=== PATIENT | male | born 1975 | race Two or more races ===

== ENCOUNTER 2016-09-25 16:35 | Emergency (ER) | payer MEDICAID ==
[~2016-09-25] VITALS: Ht 154.9 cm; Wt 59.0 kg
[~2016-09-25 16:35] MED LIST: NKM
[2016-09-25 17:13] VITALS: BP 134/90
[2016-09-25] MEDS ORDERED: IBUPROFEN600 MG ORAL (17:52)
[2016-09-25 17:56] VITALS: BP 134/90
--- NOTE | 2016-09-25 21:19 | Emergency Room Report ---
History of Present Illness General Chief Complaint: Upper Extremity Injury Source: Patient (RODOLFO LUGO) Present Illness HPI The patient is a 41-year-old male presenting for left hand pain. He denies any known injury. He admits to drinking half a bottle of vodka before arriving. Pain described as a 10 out of 10 dull ache it is worse with touch and movement. He denies radiating pain. He denies numbness/tingling, N, V, F, chills (RODOLFO LUGO) Allergies: Coded Allergies: No Known Allergies (Unverified , 02/05/14) Patient History Past Medical History: see triage record Pertinent Family History: none Reviewed Nursing Documentation: PMH: Agreed, PSxH: Agreed (RODOLFO LUGO) Nursing Documentation-PMH Hx Hypertension: Yes Hx Cancer: No Hx Neurological Problems: Yes Hx Head Trauma: Yes - childhood: surgery, patient fell from tree (RODOLFO LUGO) Review of Systems All Other Systems: negative except mentioned in HPI (RODOLFO LUGO P.AAlie) Physical Exam Vital Signs Date Time Temp Pulse Resp B/P Pulse Ox O2 Delivery O2 Flow Rate FiO2 09/25/16 16:47 105 20 134/90 95 Room Air Sp02 EP Interpretation: reviewed, normal General Appearance: no apparent distress, alert, GCS 15, non-toxic Head: normocephalic, atraumatic Eyes: bilateral eye PERRL, bilateral eye normal inspection ENT: hearing grossly normal, normal pharynx, no angioedema, normal voice Respiratory: chest non-tender, lungs clear, normal breath sounds, speaking full sentences Musculoskeletal: back normal, gait/station normal, normal range of motion, tender - TTP over the L dorsal wrist and MCs diffusely Neurologic: alert, oriented x3, responsive, motor strength/tone normal, sensory intact, speech normal Psychiatric: judgement/insight normal, memory normal, mood/affect normal, no suicidal/homicidal ideation Skin: normal color, no rash, warm/dry, well hydrated (RODOLFO LUGO) Medical Decision Making PA Attestation Dr. Thomas is my supervising physician. Patient management was discussed with my supervising physician (RODOLFO LUGO) Diagnostic Impression: Primary Impression: Hand contusion Qualified Codes: S60.222A - Contusion of left hand, initial encounter Additional Impression: Alcohol abuse ER Course The patient is a 41-year-old male presenting for left hand pain Ddx considered include but not limited to sprain/strain, fracture, contusion, gout PE:NAD TTP over the L dorsal wrist and MCs diffusely. No edema. No deformity. Full active range of motion X-rays unremarkable The patient will be discharged home with a prescription for Motrin. He is advised to stop drinking alcohol excessively and seek help. ER precautions given (RODOLFO LUGO) ER Course Scribe documentation reviewed by me and is accurate. (Bj Thomas M.D.) Other X-Ray Diagnostic Results Other X-Ray Diagnostic Results : X-Ray Ordered: L hand Date: Sep 25, 2016 EP Interpretation: Yes Findings: no fractures, no dislocation, no soft tissue swelling Number of Views: 3 PA Scribe Text I am acting as scribe for my supervising physician. My supervising physician's interpretation of the L hand xrays are there are no fractures, dislocations or soft tissue swelling. (RODOLFO LUGO) Last Vital Signs Date Time Temp Pulse Resp B/P Pulse Ox O2 Delivery O2 Flow Rate FiO2 09/25/16 17:56 20 134/90 95 Room Air 09/25/16 16:47 105 Status: improved (RODOLFO LUGO P.A.) Disposition: HOME, SELF-CARE Condition: Improved Scripts Ibuprofen* (MOTRIN*) 600 Mg Tablet 600 MG ORAL Q8H Y for For Pain, #30 TAB 0 Refills Prov: RODOLFO LUGO 09/25/16 Patient Instructions: Alcohol Intoxication, Contusion Additional Instructions: I discussed my findings with the patient. All questions and concerns have been answered. Treatment and medication compliance have been addressed. I advised the patient that they need to follow up with PMD in 3-5 days. Return to ED if pain remains or worsens, numbness or tingling occurs, new rash is noticed, fever is noticed, or if needed for any reason. Patient verbalized understanding of discharge instructions. RODOLFO LUGO Sep 25, 2016 21:19 Bj Thomas M.D. Sep 26, 2016 02:31
--- NOTE | 2016-09-26 10:47 | Diagnostic Imaging Report ---
Indication: PAIN Technique: 3 views left hand Comparison: none Findings: Exam is limited, as fingers are flexed. This may obscure pathology. Per technologist, patient was unable to extend the fingers. No definite acute fractures. No dislocations. Joint spaces are preserved. Impression: Limited exam. No definite acute process
== END 2016-09-25 17:56 | disposition home or self-care (01) ==
LOC: EMR 17:08
DX: M79.642 Pain in left hand (principal); S60.222A Contusion of left hand, initial encounter; X58.XXXA Exposure to other specified factors, initial encounter; Y92.89 Other specified places as the place of occurrence of the external cause; F10.10 Alcohol abuse, uncomplicated; I10 Essential (primary) hypertension
CPT/HCPCS: 99283

== ENCOUNTER 2017-03-22 16:20 | Emergency (ER) | payer MEDICAID ==
[~2017-03-22] VITALS: Ht 175.3 cm; Wt 74.8 kg
[~2017-03-22 16:20] MED LIST changes: +IBUPROFEN600 MG ORAL
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
[2017-03-22 19:50] VITALS: BP 133/79
== END 2017-03-22 19:50 | disposition home or self-care (01) ==
LOC: EDBD 16:20 → EMR 16:50
DX: F10.129 Alcohol abuse with intoxication, unspecified (principal); I10 Essential (primary) hypertension
CPT/HCPCS: 99284

== ENCOUNTER 2017-11-15 00:12 | Emergency (ER) | payer MEDICAID ==
[~2017-11-15] VITALS: Ht 157.5 cm; Wt 61.2 kg
[2017-11-15] MEDS ORDERED: Pantoprazole Inj IV ONE (00:30)
[2017-11-15 01:15] LABS: APPEARANCE,URINE CLEAR; BILIRUBIN, URINE NEGATIVE (NEGATIVE); COLOR,URINE PALE YELLOW; GLUCOSE, URINE (UA) NEGATIVE (NEGATIVE); KETONES,URINE NEGATIVE (NEGATIVE); LEUKOCYTE ESTERASE ,URINE NEGATIVE (NEGATIVE); NITRITE,URINE NEGATIVE (NEGATIVE); PH,URINE 7 (4.5-8.0); PROTEIN,URINE NEGATIVE (NEGATIVE); UROBILINOGEN,URINE NORMAL MG/DL (0.0-1.0)
[2017-11-15 01:38] LABS: BASOPHILS % (AUTO) 1.2 % (0.0-2.0); EOSINOPHILS % (AUTO) 1.8 % (0.0-3.0); HEMATOCRIT 34.1 % (42.0-52.0); HEMOGLOBIN 11.3 G/DL (14.2-18.0); LYMPHOCYTES % (AUTO) 47.2 % (20.0-45.0); MEAN CORPUSCULAR VOLUME 79 FL (80-99); MONOCYTES % (AUTO) 12.6 % (1.0-10.0); NEUTROPHILS % (AUTO) 37.3 % (45.0-75.0); PLATELET COUNT 231 K/UL (150-450); RED CELL DISTRIBUTION WIDTH 18.4 % (11.6-14.8)
[2017-11-15 01:46] LABS: INR 0.9 (0.9-1.1)
[2017-11-15 01:51] LABS: ANION GAP 14 mmol/L (5-15); BLOOD UREA NITROGEN 6 mg/dL (7-18); CALCIUM 8.7 MG/DL (8.5-10.1); CARBON DIOXIDE 23 MMOL/L (21-32); CHLORIDE 105 MMOL/L (98-107); CREATININE 0.6 MG/DL (0.55-1.30); POTASSIUM 3.6 MMOL/L (3.5-5.1); SODIUM 142 MMOL/L (136-145)
[2017-11-15 01:57] LABS: ALANINE AMINOTRANSFERASE 190 U/L (12-78); ALBUMIN 3.9 G/DL (3.4-5.0); ALKALINE PHOSPHATASE 139 U/L (46-116); ASPARTATE AMINO TRANSFERASE 224 U/L (15-37); BILIRUBIN,TOTAL 0.3 MG/DL (0.2-1.0)
[2017-11-15] MEDS ORDERED: PRILOSEC OTC20 MG ORAL (03:02)
[2017-11-15] MEDS ORDERED: Sodium Chloride 500ML 500 ML IV ONE (03:15)
--- NOTE | 2017-11-15 03:33 | Emergency Room Report ---
History of Present Illness General Chief Complaint: Alcohol Intoxication Source: Patient Present Illness HPI Patient is a 42-year-old male who presented after increased vomiting and altered mental status. Patient was brought in by EMS. The patient was noted to have increased palpitations. He reports having recently had been drinking alcohol. He states he drank 1 beer.The patient reports having some epigastric pain.He denies any bloody stools or mya hematemesis or coffee-ground emesis Allergies: Coded Allergies: No Known Allergies (Unverified , 02/05/14) Patient History Past Medical History: see triage record Reviewed Nursing Documentation: PMH: Agreed; PSxH: Agreed Nursing Documentation-PMH Past Medical History: No Stated History Hx Hypertension: Yes Hx Cancer: No Hx Neurological Problems: Yes Hx Head Trauma: Yes - childhood: surgery, patient fell from tree Review of Systems All Other Systems: negative except mentioned in HPI Physical Exam Vital Signs Date Time Temp Pulse Resp B/P (MAP) Pulse Ox O2 Delivery O2 Flow Rate FiO2 11/15/17 00:11 98.1 92 18 123/72 98 Room Air 98.1 General Appearance: well appearing, no apparent distress, alert, GCS 15 Head: normocephalic, atraumatic ENT: hearing grossly normal, normal voice Neck: full range of motion, supple Respiratory: no respiratory distress, speaking full sentences Gastrointestinal: normal inspection, normal bowel sounds, non tender, soft Musculoskeletal: no calf tenderness Neurologic: normal inspection, alert, oriented x3, responsive, garland maker III-XII nml as tested, normal gait Psychiatric: mood/affect normal Skin: no rash Medical Decision Making Diagnostic Impression: Primary Impression: Acute alcoholic intoxication ER Course Patient presented for abdominal pain. Differential diagnoses included ischemic bowel, appendicitis, perforated viscus, abdominal aortic aneurysm, inferior myocardial infarction, viral gastroenteritis. Because of complexity of patient' s case laboratory testing and imaging studies were ordered. The laboratory testing was notable for elevated blood alcohol level. Patient was noted to have adequate hemoglobin. He was started on IV acid blockers. The patient was observed in the emergency department had no episodes of vomiting. He was noted to have improvement in his mental status and was able tolerate oral fluids. The patient is advised to follow up with primary care doctor in 1-2 days. Patient is advised to return if any worsening condition or if any changes in status that are concerning. This report is dictated with [employer] customer engagement analyst software which may occasionally lead to discrepancies related to use of this software. Labs Test 11/15/17 00:49 11/15/17 01:00 Urine Color Pale yellow Urine Appearance Clear Urine pH 7 (4.5-8.0) Urine Specific [place] 1.010 (1.005-1.035) Urine Protein Negative (NEGATIVE) Urine Glucose (UA) Negative (NEGATIVE) Urine Ketones Negative (NEGATIVE) Urine Occult Blood Negative (NEGATIVE) Urine Nitrite Negative (NEGATIVE) Urine Bilirubin Negative (NEGATIVE) Urine Urobilinogen Normal MG/DL (0.0-1.0) Urine Leukocyte Esterase Negative (NEGATIVE) White Blood Count 7.0 K/UL (4.8-10.8) Red Blood Count 4.30 M/UL (4.70-6.10) Hemoglobin 11.3 G/DL (14.2-18.0) Hematocrit 34.1 % (42.0-52.0) Mean Corpuscular Volume 79 FL (80-99) Mean Corpuscular Hemoglobin 26.3 PG (27.0-31.0) Mean Corpuscular Hemoglobin Concent 33.1 G/DL (32.0-36.0) Red Cell Distribution Width 18.4 % (11.6-14.8) Platelet Count 231 K/UL (150-450) Mean Platelet Volume 6.4 FL (6.5-10.1) Neutrophils (%) (Auto) 37.3 % (45.0-75.0) Lymphocytes (%) (Auto) 47.2 % (20.0-45.0) Monocytes (%) (Auto) 12.6 % (1.0-10.0) Eosinophils (%) (Auto) 1.8 % (0.0-3.0) Basophils (%) (Auto) 1.2 % (0.0-2.0) Prothrombin Time 10.0 SEC (9.30-11.50) Prothromb Time International Ratio 0.9 (0.9-1.1) Activated Partial Thromboplast Time 24 SEC (23-33) Sodium Level 142 MMOL/L (136-145) Potassium Level 3.6 MMOL/L (3.5-5.1) Chloride Level 105 MMOL/L (98-107) Carbon Dioxide Level 23 MMOL/L (21-32) Anion Gap 14 mmol/L (5-15) Blood Urea Nitrogen 6 mg/dL (7-18) Creatinine 0.6 MG/DL (0.55-1.30) Estimat Glomerular Filtration Rate > 60 mL/min (>60) Glucose Level 102 MG/DL (74-106) Calcium Level 8.7 MG/DL (8.5-10.1) Total Bilirubin 0.3 MG/DL (0.2-1.0) Aspartate Amino Transf (AST/SGOT) 224 U/L (15-37) Alanine Aminotransferase (ALT/SGPT) 190 U/L (12-78) Alkaline Phosphatase 139 U/L (46-116) Total Protein 7.9 G/DL (6.4-8.2) Albumin 3.9 G/DL (3.4-5.0) Globulin 4.0 g/dL Albumin/Globulin Ratio 1.0 (1.0-2.7) Lipase 477 U/L (73-393) Serum Alcohol 402 mg/dL Last Vital Signs Date Time Temp Pulse Resp B/P (MAP) Pulse Ox O2 Delivery O2 Flow Rate FiO2 11/15/17 00:11 98.1 92 18 123/72 98 Room Air 98.1 Status: improved Disposition: HOME, SELF-CARE Condition: Stable Scripts Omeprazole Magnesium (PRILOSEC OTC) 20 Mg Tablet. 20 MG ORAL DAILY, #30 TAB Prov: Heriberto Pierce MD 11/15/17 Referrals: NOT CHOSEN SYD/,REFERRING (PCP) Patient Instructions: Alcohol Intoxication, [id number] Heriberto Pierce MD Nov 15, 2017 03:33
[2017-11-15 05:45] VITALS: BP 123/72
--- NOTE | 2017-11-16 14:48 | Cardiology Report ---
APPROVED REPORT EKG Measurement Heart [id number] Normal sinus rhythm Normal ECG
== END 2017-11-15 05:45 | disposition home or self-care (01) ==
LOC: EDBD → EMR 00:29
DX: F10.129 Alcohol abuse with intoxication, unspecified (principal); R11.10 Vomiting, unspecified; R41.82 Altered mental status, unspecified; I10 Essential (primary) hypertension
CPT/HCPCS: 36415; 80053; 80329; 81003; 83690; 85025; 85610; 85730; 93005; 96374; 96375; 99284; C9113; J2405; J7040

== ENCOUNTER 2017-11-15 16:48 | Emergency (ER) | payer MEDICAID ==
[~2017-11-15] VITALS: Ht 165.1 cm; Wt 72.6 kg
[2017-11-15 16:42] VITALS: BP 132/90
[~2017-11-15 16:48] MED LIST changes: +PRILOSEC OTC20 MG ORAL
--- NOTE | 2017-11-15 17:35 | Emergency Room Report ---
History of Present Illness General Chief Complaint: General Complaint Source: EMS Present Illness HPI 42-year-old male returns to the emergency department complaining of inability to keep down fluids or food. Patient states that he has started vomiting again. Patient also reports that he has dizziness and discomfort in his head. He denies trauma or fall patient reports that he does not have a primary care physician for follow-up as there are issues with his legal status/citizenship. Pt. also reports palpitations x 3 days as well as intermittent paresthesia in the right lower extremity x 3-4 months. Denies CP, LOC, AMS, dizziness, Changes in Vision, Sensation, paresthesias, or a sudden severe headache. Allergies: Coded Allergies: No Known Allergies (Unverified , 02/05/14) Patient History Past Medical History: see triage record Past Surgical History: none Pertinent Family History: none Social History: Reports: alcohol use Reviewed Nursing Documentation: PMH: Agreed; PSxH: Agreed Nursing Documentation-PMH Past Medical History: No History, Except For Hx Cardiac Problems: Yes - Unknown Hx Hypertension: Yes Hx Cancer: No Hx Neurological Problems: Yes Hx Head Trauma: Yes - childhood: surgery, patient fell from tree Review of Systems All Other Systems: negative except mentioned in HPI Physical Exam Vital Signs Date Time Temp Pulse Resp B/P (MAP) Pulse Ox O2 Delivery O2 Flow Rate FiO2 11/15/17 16:35 98.8 117 18 132/90 97 Room Air 98.8 Sp02 EP Interpretation: reviewed, normal General Appearance: no apparent distress, alert, GCS 15, non-toxic Head: normocephalic, atraumatic Eyes: bilateral eye normal inspection, bilateral eye PERRL ENT: hearing grossly normal, normal voice Neck: full range of motion, no meningismus, no bony tend Respiratory: chest non-tender, lungs clear, normal breath sounds, no respiratory distress, no wheezing, speaking full sentences Cardiovascular #1: regular rate, rhythm, no edema, normal capillary refill Gastrointestinal: normal bowel sounds, soft, non-distended, no guarding, no pulsatile mass, tenderness - mild epigastric TTP Rectal: deferred Musculoskeletal: back normal, gait/station normal, normal range of motion, non- tender Neurologic: alert, oriented x3, responsive, motor strength/tone normal, sensory intact, speech normal, other - Clinically inebriated, grossly normal Psychiatric: judgement/insight normal, no suicidal/homicidal ideation Skin: normal color, no rash, warm/dry, well hydrated Medical Decision Making PA Attestation Dr. Gleason is my supervising Physician whom patient management has been discussed with. Diagnostic Impression: Primary Impression: Alcohol abuse Additional Impressions: Headache Qualified Codes: R51 - Headache Gastritis Qualified Codes: K29.20 - Alcoholic gastritis without bleeding ER Course Pt. presents to the ED c/o [ ] Ddx considered but are not limited to EtOH abuse, acute alcoholic pancreatitis, acute head injury, dehydration just to name a few. Vital signs: are WNL, pt. is afebrile H&PE are most consistent with alcoholism and presenting with acute intoxication and having vomiting and HOWELL. ORDERS: -CBC: WNL -CMP: LFT's have improved but still elevated -Lipase:515 ED INTERVENTIONS: -1 liter NS -4mg Zofran PO DISPOSITION: Pt. medically cleared, continues to show signs of clinical intoxication. Pt. reports living on the streets. Pending Fisheries Officer consult during normal business hours. Pt. Left ED. Labs Test 11/15/17 18:15 White Blood Count 6.0 K/UL (4.8-10.8) Red Blood Count 3.85 M/UL (4.70-6.10) Hemoglobin 10.0 G/DL (14.2-18.0) Hematocrit 30.7 % (42.0-52.0) Mean Corpuscular Volume 80 FL (80-99) Mean Corpuscular Hemoglobin 25.8 PG (27.0-31.0) Mean Corpuscular Hemoglobin Concent 32.5 G/DL (32.0-36.0) Red Cell Distribution Width 18.3 % (11.6-14.8) Platelet Count 193 K/UL (150-450) Mean Platelet Volume 6.5 FL (6.5-10.1) Neutrophils (%) (Auto) 45.1 % (45.0-75.0) Lymphocytes (%) (Auto) 42.4 % (20.0-45.0) Monocytes (%) (Auto) 10.9 % (1.0-10.0) Eosinophils (%) (Auto) 1.2 % (0.0-3.0) Basophils (%) (Auto) 0.5 % (0.0-2.0) Sodium Level 144 MMOL/L (136-145) Potassium Level 3.6 MMOL/L (3.5-5.1) Chloride Level 105 MMOL/L (98-107) Carbon Dioxide Level 24 MMOL/L (21-32) Anion Gap 15 mmol/L (5-15) Blood Urea Nitrogen 9 mg/dL (7-18) Creatinine 0.7 MG/DL (0.55-1.30) Estimat Glomerular Filtration Rate > 60 mL/min (>60) Glucose Level 123 MG/DL (74-106) Calcium Level 8.5 MG/DL (8.5-10.1) Total Bilirubin 0.2 MG/DL (0.2-1.0) Aspartate Amino Transf (AST/SGOT) 157 U/L (15-37) Alanine Aminotransferase (ALT/SGPT) 151 U/L (12-78) Alkaline Phosphatase 141 U/L (46-116) Total Protein 7.5 G/DL (6.4-8.2) Albumin 3.8 G/DL (3.4-5.0) Globulin 3.7 g/dL Albumin/Globulin Ratio 1.0 (1.0-2.7) Lipase 515 U/L (73-393) CT/MRI/US Diagnostic Results CT/MRI/US Diagnostic Results : Impression No evidence of acute fracture, hemorrhage, or intracranial process- Per official radiology report- Please see report for specific details. Last Vital Signs Date Time Temp Pulse Resp B/P (MAP) Pulse Ox O2 Delivery O2 Flow Rate FiO2 11/15/17 16:42 98.8 80 18 132/90 97 Room Air 98.8 Disposition: HOME, SELF-CARE - ERASED Condition: Stable Patient Instructions: Alcoholic Liver Disease, [id number] Additional Instructions: STOP CONSUMPTION OF ALCOHOL Take previously prescribed medications as directed. Follow up with a Primary Care Provider in 3-5 days, even if your symptoms have resolved. --Please review list of primary care clinics, if you do not already have a primary care provider - - Review list of senior care resources, and alcoholism resources. Return sooner to ED if new symptoms occur, or current symptoms become worse. - Please note that this Emergency Department Report was dictated using [email or web address] coordination and production head technology software, occasionally this can lead to erroneous entry secondary to interpretation by the dictation equipment. Nayana Wright Nov 15, 2017 17:35
--- NOTE | 2017-11-15 18:04 | Diagnostic Imaging Report ---
EXAM: CT Head Without Intravenous Contrast CLINICAL HISTORY: DIZZY, vertigo TECHNIQUE: Axial computed tomography images of the head/brain without intravenous contrast. CTDI is 0.15, 70.38 mGy and DLP is 1403 mGy-cm. One or more of the following dose reduction techniques were used: automated exposure control, adjustment of the mA and/or kV according to patient size, use of iterative reconstruction technique. COMPARISON: No relevant prior studies available. FINDINGS: Brain: No CT evidence for acute cortical infarct, however, MRI is more sensitive for the detection of acute ischemic infarct. Old lacunar infarct suspected in the nay on the right. Small hypodensity in the left occipital lobe which is likely related to an old lacunar infarct versus prominent perivascular space. No hemorrhage. Ventricles: Unremarkable. No ventriculomegaly. Bones/joints: Unremarkable. No acute fracture. Soft tissues: Unremarkable. Sinuses: Unremarkable as visualized. No acute sinusitis. Mastoid air cells: Unremarkable as visualized. No mastoid effusion. IMPRESSION: 1. No CT evidence for acute cortical infarct, however, MRI is more sensitive for the detection of acute ischemic infarct. 2. Old lacunar infarct suspected in the nay on the right. 3. Small hypodensity in the left occipital lobe which is likely related to an old small lacunar infarct versus prominent perivascular space.
[2017-11-15 18:39] LABS: ANION GAP 15 mmol/L (5-15); BLOOD UREA NITROGEN 9 mg/dL (7-18); CALCIUM 8.5 MG/DL (8.5-10.1); CARBON DIOXIDE 24 MMOL/L (21-32); CHLORIDE 105 MMOL/L (98-107); CREATININE 0.7 MG/DL (0.55-1.30); POTASSIUM 3.6 MMOL/L (3.5-5.1); SODIUM 144 MMOL/L (136-145)
[2017-11-15 18:44] LABS: ALANINE AMINOTRANSFERASE 151 U/L (12-78); ALBUMIN 3.8 G/DL (3.4-5.0); ALKALINE PHOSPHATASE 141 U/L (46-116); ASPARTATE AMINO TRANSFERASE 157 U/L (15-37); BASOPHILS % (AUTO) 0.5 % (0.0-2.0); BILIRUBIN,TOTAL 0.2 MG/DL (0.2-1.0); EOSINOPHILS % (AUTO) 1.2 % (0.0-3.0); HEMATOCRIT 30.7 % (42.0-52.0); LYMPHOCYTES % (AUTO) 42.4 % (20.0-45.0); MEAN CORPUSCULAR VOLUME 80 FL (80-99); MONOCYTES % (AUTO) 10.9 % (1.0-10.0); NEUTROPHILS % (AUTO) 45.1 % (45.0-75.0); PLATELET COUNT 193 K/UL (150-450); RED BLOOD COUNT 3.85 M/UL (4.70-6.10); RED CELL DISTRIBUTION WIDTH 18.3 % (11.6-14.8)
[2017-11-15 19:30] VITALS: BP 129/81
[2017-11-15 20:35] VITALS: BP 129/81
== END 2017-11-15 20:35 | disposition home or self-care (01) ==
LOC: EDBD 16:48 → EMR 17:00
DX: F10.10 Alcohol abuse, uncomplicated (principal); R51 Headache; K29.70 Gastritis, unspecified, without bleeding; I10 Essential (primary) hypertension; R42 Dizziness and giddiness
CPT/HCPCS: 36415; 70450; 80053; 83690; 85025; 96361; 96374; 99284

== ENCOUNTER 2018-01-24 22:49 | Emergency (ER) | payer MEDICAID ==
[~2018-01-24] VITALS: Ht 162.6 cm; Wt 63.5 kg
[2018-01-24 22:50] VITALS: BP 130/87
--- NOTE | 2018-01-25 01:24 | Emergency Room Report ---
History of Present Illness General Chief Complaint: Abdominal Pain Source: Patient Present Illness HPI This patient is a heavy drinker; c/o mild epigastric discomfort and nausea this evening (few hours.) No actual vomiting. Minimal pain. No fever. Hx. limited due to patient not wanting to really talk and language. Has been here in the past with alcoholic gastritis. Allergies: Coded Allergies: No Known Allergies (Unverified , 02/05/14) UNABLE TO ASSESS (Unverified , 01/24/18) Nursing Documentation-PM Past Medical History: No Stated History Hx Hypertension: Yes Hx Cancer: No Hx Neurological Problems: Yes Hx Head Trauma: Yes - childhood: surgery, patient fell from tree Review of Systems Constitutional: Reports: no symptoms, see HPI Eye: Reports: no symptoms ENT: Reports: no symptoms Respiratory: Reports: no symptoms Cardiovascular: Reports: no symptoms Gastrointestinal: Reports: abdominal pain, nausea Genitourinary: Reports: no symptoms Musculoskeletal: Reports: no symptoms Skin: Reports: no symptoms Psychiatric: Reports: no symptoms Neurological: Reports: no symptoms Endocrine: Reports: no symptoms Hematologic/Lymphatic: Reports: no symptoms Allergic: Reports: no symptoms All Other Systems: negative except mentioned in HPI Physical Exam Vital Signs Date Time Temp Pulse Resp B/P (MAP) Pulse Ox O2 Delivery O2 Flow Rate FiO2 01/24/18 22:33 97.8 84 18 130/87 95 Room Air 97.9 Sp02 EP Interpretation: reviewed, normal General Appearance: normal inspection, well appearing, no apparent distress, alert, GCS 15, non-toxic Head: normocephalic, atraumatic Eyes: bilateral eye normal inspection, bilateral eye PERRL, bilateral eye EOMI ENT: normal ENT inspection, hearing grossly normal, normal pharynx, no angioedema, normal voice, moist mucus membranes Neck: normal inspection, full range of motion, supple, no meningismus, no bony tend Respiratory: normal inspection, lungs clear, normal breath sounds, no rhonchi, no respiratory distress, no retraction, no accessory muscle use, no wheezing Cardiovascular #1: normal inspection, regular rate, rhythm, no edema Gastrointestinal: normal inspection, normal bowel sounds, non tender, soft, no mass, non-distended Musculoskeletal: gait/station normal, normal range of motion Neurologic: normal inspection, alert, oriented x3, responsive, motor strength/ tone normal Psychiatric: normal inspection, judgement/insight normal, memory normal Suicide Risk Assessment: Suicidal Ideation: No Had intent to initiate attempt: No Pt's plan for suicide attempt: No Has means to complete attempt: No Skin: normal inspection, normal color, no rash, warm/dry Medical Decision Making Diagnostic Impression: Primary Impression: Abdominal pain Additional Impression: Alcohol abuse ER Course likely mild alcohol related gastritis pt. has no tenderness, no vomiting, ok vitals no intervention needed; basically pt just wanted to sleep here reassessment 2.5 hours later: continues to be stable, VSS, ok for d/c. Last Vital Signs Date Time Temp Pulse Resp B/P (MAP) Pulse Ox O2 Delivery O2 Flow Rate FiO2 01/24/18 22:50 97.9 84 18 130/87 95 Room Air 97.9 Status: improved Disposition: HOME, SELF-CARE Referrals: NOT CHOSEN IPA/,REFERRING (PCP) Patient Instructions: Abdominal Pain, Adult Arthur Ibrahim M.D. Jan 25, 2018 01:24
[2018-01-25 01:40] VITALS: BP 126/68
== END 2018-01-25 01:40 | disposition home or self-care (01) ==
LOC: EDBD 22:49 → EMR 23:50
DX: R10.13 Epigastric pain (principal); F10.10 Alcohol abuse, uncomplicated; I10 Essential (primary) hypertension
CPT/HCPCS: 99282

== ENCOUNTER 2018-07-30 19:37 | Emergency (ER) | payer MEDICAID ==
[~2018-07-30] VITALS: Ht 167.6 cm; Wt 68.0 kg
--- NOTE | 2018-07-30 19:50 | Emergency Room Report ---
History of Present Illness General Chief Complaint: Nausea Source: Patient, EMS Present Illness HPI Patient is a 42-year-old male who presented after increased nausea and vomiting. Patient reports having chronic injuries to both legs. He reports having increased pain. He states he has been vomiting multiple times.Patient reported having some recent alcohol use. Allergies: Coded Allergies: No Known Allergies (Unverified , 02/05/14) UNABLE TO ASSESS (Unverified , 01/24/18) Patient History Past Medical History: see triage record Reviewed Nursing Documentation: PMH: Agreed; PSxH: Agreed Nursing Documentation-PMH Hx Hypertension: Yes Hx Cancer: No Hx Neurological Problems: Yes Hx Head Trauma: Yes - childhood: surgery, patient fell from tree Review of Systems All Other Systems: limited - Limited by poor historian Physical Exam Vital Signs Date Time Temp Pulse Resp B/P (MAP) Pulse Ox O2 Delivery O2 Flow Rate FiO2 07/30/18 19:34 98.2 96 18 136/80 99 Room Air Sp02 EP Interpretation: reviewed, normal General Appearance: normal inspection, no apparent distress, alert, GCS 15, Chronically Ill Head: atraumatic ENT: normal ENT inspection, hearing grossly normal, normal voice Neck: normal inspection, full range of motion, supple, no bony tend Respiratory: normal inspection, lungs clear, normal breath sounds, no respiratory distress, no retraction, no wheezing Cardiovascular #1: regular rate, rhythm, no edema Gastrointestinal: normal inspection, normal bowel sounds, non tender, soft, no guarding, no hernia Genitourinary: no CVA tenderness Musculoskeletal: normal inspection, back normal, normal range of motion Neurologic: normal inspection, alert, responsive, speech normal Psychiatric: normal inspection, judgement/insight normal, mood/affect normal Skin: normal inspection, normal color, no rash Medical Decision Making Homeless Attestation I, Dr. Pierce, the Treating physician, has assessed whether the patient is alert and oriented to person, place and time and has determined that the patient is clinically stable for discharge. Diagnostic Impression: Primary Impression: Acute alcoholic intoxication ER Course Patient presented for vomiting. Differential diagnosis include was not limited to alcohol intoxication, gastritis, among others. Patient was given medications for nausea. He appears to be intoxicated with alcohol. Patient does not appear to require any laboratory testing at this time. Patient had not been vomiting while in the emergency department. Patient was given prescriptions for medications for symptomatic treatment. Advised alcohol cessation. Patient appears to be stable for discharge.X-rays of the lower extremities did not show any evidence of acute fracture. Last Vital Signs Date Time Temp Pulse Resp B/P (MAP) Pulse Ox O2 Delivery O2 Flow Rate FiO2 07/30/18 19:34 98.2 96 18 136/80 99 Room Air Status: improved Disposition: HOME, SELF-CARE Condition: Stable Scripts Ondansetron (Zofran) 4 Mg Tablet 4 MG ORAL Q6H PRN for Nausea & Vomiting, #30 TAB 0 Refills Prov: Heriberto Pierce MD 07/30/18 Omeprazole Magnesium (PRILOSEC OTC) 20 Mg Tablet. 20 MG ORAL DAILY, #30 TAB Prov: Heriberto Pierce MD 07/30/18 Heriberto Pierce MD Jul 30, 2018 19:50
[2018-07-30 19:59] VITALS: BP 136/80
--- NOTE | 2018-07-30 20:04 | NUR ---
ER Nurse Note: Pt BIBA c/o n/v. Per pt, n/v since today and bilateral leg pain. Cap refill less than 3 secs and has sensation in bilateral lower extremites. No emesis on shift. Pt a&ox4, VSS, no signs of distress. Will continue to [facility].
[2018-07-30] MEDS ORDERED: ZOFRAN4 MG ORAL (22:17)
[2018-07-30] MEDS ORDERED: PRILOSEC OTC20 MG ORAL (22:17)
[2018-07-31] VITALS: BP 138/74
--- NOTE | 2018-07-31 | NUR ---
ER Nurse Note: Pt currently asleep, resting in bed. No signs of distress, no complains of pain. Bed in lowest position, bed locked, side rails up; will continue to montior.
[2018-07-31 02:40] VITALS: BP 136/76
--- NOTE | 2018-07-31 02:40 | NUR ---
ER Nurse Note: Pt seen, treated, medically cleared for discharge by [email or web address]. Discharge instructions and prescriptions given with instructions; pt was mute but took paperwork. Instructed pt to follow up with primary care physcian within one week. Pt a&ox4, VSS, no signs of distress. Pt stated he is going to [employer], no address was given. Pt was given juice, food; used the restroom before pt left. ID band removed. Pt left with all belongings with steady gait with assisstive device via own transportation. Addendum: 07/31/18 at 0451 by [email or web address] ER Nurse Note: Homeless checklist completed.
--- NOTE | 2018-07-31 08:39 | Diagnostic Imaging Report ---
Indication: Left ankle pain Technique: 3 views of the left ankle Comparison: none Findings: No acute fractures. No dislocations. The joint spaces are preserved. Impression: No acute process
--- NOTE | 2018-07-31 08:41 | Diagnostic Imaging Report ---
Indication: Right foot pain Technique: 3 views right foot Comparison: none Findings: No acute fractures. No dislocations. The joint spaces are preserved. Impression: Negative
== END 2018-07-31 02:40 | disposition home or self-care (01) ==
LOC: EDBD 19:37 → EMR 19:54
DX: F10.129 Alcohol abuse with intoxication, unspecified (principal); R11.2 Nausea with vomiting, unspecified; I10 Essential (primary) hypertension
CPT/HCPCS: 99284